=== PATIENT | female | born 1970 | race Caucasian/White ===

== ENCOUNTER → 2020-04-10 | Outpatient (CLI) | payer BC, OTHER ==
[~2020-04-10] MED LIST: CELEXA40 MG PO; PHENERGAN 25 MG25 M1 PO; PREDNISONE20 MG PO; PROTONIX40 MG PO; TUSSINEX PO; VITAMIN D32000 UNI1 PO; ZITHROMAX250 MG PO; ZOFRAN4 MG PO
== END ==
LOC: RAD 11:05
DX: M25.551 Pain in right hip (principal)
CPT/HCPCS: 73502

== ENCOUNTER → 2020-04-15 | Outpatient (CLI) | payer BC, OTHER | LOC: CT 13:32 → KOH-I 04-16 15:00 | DX: R10.31 Right lower quadrant pain (principal); N20.0 Calculus of kidney ==

== ENCOUNTER → 2020-04-30 | Outpatient (CLI) | payer BC, OTHER ==
[2020-04-30 09:03] LABS: BUN/CREATININE RATIO 18 (0-10)
== END ==
LOC: LAB 08:12
DX: N20.0 Calculus of kidney (principal)
CPT/HCPCS: 36415; 80069; 81001; 83970; 84550

== ENCOUNTER → 2020-05-01 | Outpatient (CLI) | payer BC, OTHER | LOC: US 08:27 | DX: N20.0 Calculus of kidney (principal); N27.0 Small kidney, unilateral ==

== ENCOUNTER → 2020-05-05 | Outpatient (CLI) | payer BC, OTHER ==
[2020-05-05 12:10] LABS: HEMOGLOBIN 14.2 gm/dl (12.3-15.3); RED BLOOD COUNT 4.78 M/UL (4.00-5.10); WHITE BLOOD COUNT 11.5 K/UL (4.5-11.0)
== END ==
LOC: LAB 11:06
PROVIDERS: Nurse Practitioner
DX: Z01.818 Encounter for other preprocedural examination (principal); R53.83 Other fatigue
CPT/HCPCS: 36415; 80053; 80061; 83036; 84443; 85025; 86140

== ENCOUNTER → 2020-05-07 | Outpatient (CLI) | payer BC, OTHER | LOC: MAMO 10:21 | DX: Z01.818 Encounter for other preprocedural examination (principal) | CPT/HCPCS: 77063; 77067 ==

== ENCOUNTER → 2020-09-04 | Outpatient (CLI) | payer OTHER, BC | LOC: MRI 09:32 | DX: M47.816 Spondylosis without myelopathy or radiculopathy, lumbar region (principal); M51.36 Other intervertebral disc degeneration, lumbar region; M51.27 Other intervertebral disc displacement, lumbosacral region; M47.814 Spondylosis without myelopathy or radiculopathy, thoracic region; Z98.1 Arthrodesis status | CPT/HCPCS: 72070; 72158; A9577 ==

== ENCOUNTER → 2020-10-02 | Outpatient (CLI) | payer BC | LOC: CT 12:00 | DX: M54.5 Low back pain (principal) | CPT/HCPCS: 72128 ==

== ENCOUNTER → 2020-10-03 | Outpatient (CLI) | payer BC | LOC: MRI 13:09 → CT 10-12 14:30 → MRI 10-12 15:00 → CT 10-16 08:30 | DX: M54.5 Low back pain (principal); R07.81 Pleurodynia | CPT/HCPCS: 72195; 74181 ==

== ENCOUNTER 2020-10-29 12:14 | Emergency (ER) | payer BC ==
[2020-10-29 12:56] LABS: RED BLOOD COUNT 4.67 M/UL (4.00-5.10); WHITE BLOOD COUNT 7.4 K/UL (4.5-11.0)
[2020-10-29 13:21] LABS: BUN/CREATININE RATIO 12 (0-10)
== END 2020-10-29 15:10 | disposition home or self-care (01) ==
LOC: ER1 12:14
PROVIDERS: Nurse Practitioner
DX: R50.9 Fever, unspecified (principal); Z20.822 Contact with and (suspected) exposure to COVID-19; Z98.82 Breast implant status; Z90.710 Acquired absence of both cervix and uterus; Z90.89 Acquired absence of other organs
CPT/HCPCS: 71045; 80053; 81001; 83605; 85025; 86140; 87040; 99283; U0003

== ENCOUNTER → 2020-12-02 | Day surgery (SDC) | payer BC ==
[~2020-12-02] MED LIST changes: +COLACE100 MG PO; +HYDROCODON-ACE1 EAC2 PO
== END | disposition home or self-care (01) ==
LOC: OR 04:45
DX: K80.10 Calculus of gallbladder with chronic cholecystitis without obstruction (principal); K82.8 Other specified diseases of gallbladder; I35.1 Nonrheumatic aortic (valve) insufficiency; F06.4 Anxiety disorder due to known physiological condition; F32.9 Major depressive disorder, single episode, unspecified; J45.991 Cough variant asthma; K21.9 Gastro-esophageal reflux disease without esophagitis; J30.9 Allergic rhinitis, unspecified; E55.9 Vitamin D deficiency, unspecified; G47.00 Insomnia, unspecified; E66.3 Overweight; Z68.27 Body mass index [BMI] 27.0-27.9, adult; Z79.899 Other long term (current) drug therapy; Z20.822 Contact with and (suspected) exposure to COVID-19; Z90.710 Acquired absence of both cervix and uterus
CPT/HCPCS: J0690; J1100; J1170; J1885; J2001; J2250; J2405; J2704; J2710; J3010; J7030; J7120

== ENCOUNTER 2021-10-24 20:43 | Emergency (ER) | payer BC ==
[2021-10-24] MEDS ORDERED: IBUPROFEN600 MG PO (21:46)
== END 2021-10-24 21:52 | disposition home or self-care (01) ==
LOC: ER1 20:43
DX: S93.602A Unspecified sprain of left foot, initial encounter (principal); W20.8XXA Other cause of strike by thrown, projected or falling object, initial encounter
CPT/HCPCS: 73630; 99283